=== PATIENT | female | born 1980 | race Two or more races ===

== ENCOUNTER → 2017-04-14 | Outpatient (CLI) | payer OTHER ==
[2014-06-20 23:27] VITALS: BP 128/77
--- NOTE | 2017-04-14 14:21 | RAD ---
Pelvic ultrasound, 04/14/2017: History: Check IUD placement Only transvaginal scans were obtained as requested. The uterus measures 9.2 x 5.6 x 5.4 cm. There are echogenic foci in the central aspect of the uterus compatible with the patient's known IUD. The central uterine echo complex is not clearly defined but it does not appear to be thickened. The ovaries are of normal size. There is a 2.2 cm cyst in the left ovary. Blood flow is present in both ovaries. There is a small amount of free fluid in the cul-de-sac. This amount of fluid can be on a physiologic basis. IMPRESSION: 1. Satisfactory position of the IUD within the uterus. 2. Small left ovarian cyst.
== END | disposition home or self-care (01) ==
LOC: US 11:06
PROVIDERS: ATTEND Nurse Practitioner Occupational Health
DX: Z01.419 Encounter for gynecological examination (general) (routine) without abnormal findings (principal); N83.202 Unspecified ovarian cyst, left side
CPT/HCPCS: 76830

== ENCOUNTER → 2017-10-18 | Outpatient (CLI) | payer OTHER ==
[2017-10-18 08:39] LABS: % SAT IRON 42 % (15-34); IRON,SERUM 132 ug/dL (50-170)
[2017-10-18 08:47] LABS: THYROID STIM HORMONE (TSH) 2.697 uIU/mL (0.358-3.74)
[2017-10-18 08:51] LABS: ALBUMIN 3.7 g/dL (3.4-5.0); ALBUMIN/GLOBULIN RATIO 0.9 (1.0-1.7); ALK PHOS 81 U/L (46-116); ALT (SGPT) 17 U/L (14-59); ANION GAP 9 (6-14); AST (SGOT) 13 U/L (15-37); BLOOD UREA NITROGEN 12 mg/dL (7-20); BUN/CREATININE RATIO 17 (6-20); CARBON DIOXIDE 28 mmol/L (21-32); CHLORIDE 102 mmol/L (98-107); CHOLESTEROL 194 mg/dL (0-200); CREATINE KINASE 64 U/L (26-192); CREATININE 0.7 mg/dL (0.6-1.0); FERRITIN 114 ng/mL (8-252); GFR 94.7; GLUCOSE 89 mg/dL (70-99); HDLC 66 mg/dL (40-60); LDLC 118 mg/dL (0-100); NON-HDL CHOLESTEROL 128 mg/dL (0-129); POTASSIUM 3.9 mmol/L (3.5-5.1); SODIUM 139 mmol/L (136-145); TOTAL PROTEIN 7.9 g/dL (6.4-8.2); TRIGLYCERIDES 49 mg/dL (0-150); VLDLC 10 mg/dL (0-40)
[2017-10-18 08:52] LABS: CHOLESTEROL/HDL RATIO 2.9
[2017-10-18 09:11] LABS: VITAMIN-B12 689 pg/mL (247-911)
[2017-10-18 09:47] LABS: SEDIMENTATION RATE 3 (0-25)
[2017-10-18 19:18] LABS: LUTEINIZING HORMONE 5.8 mIU/mL (.)
[2017-10-18 20:14] LABS: THYROXINE 8.7 ug/dL (4.5-12.0)
[2017-10-19 00:16] LABS: HEMOGLOBIN A1C 4.6 % (4.8-5.6)
== END | disposition home or self-care (01) ==
LOC: LAB 07:51
DX: E55.9 Vitamin D deficiency, unspecified (principal); M85.80 Other specified disorders of bone density and structure, unspecified site; R79.89 Other specified abnormal findings of blood chemistry; Z79.899 Other long term (current) drug therapy
CPT/HCPCS: 36415; 80053; 80061; 82306; 82550; 82607; 82728; 82746; 83001; 83002; 83036; 83540; 83550; 84436; 84443; 85651

== ENCOUNTER → 2017-12-15 | Outpatient (CLI) | payer OTHER ==
[2017-12-15 15:00] LABS: ADD MAN DIFF? NO
[2017-12-15 15:20] LABS: BASO % 1 % (0-3); EOS # 0.1 x10^3/uL (0.0-0.7); EOS % 2 % (0-3); HEMATOCRIT 38.4 % (36.0-47.0); HEMOGLOBIN 13.2 g/dL (12.0-15.5); LYMPH # 2.1 x10^3/uL (1.0-4.8); LYMPH % 34 % (24-48); MEAN CORPUSCULAR HEMOGLOBIN 31 pg (25-35); MEAN CORPUSCULAR HGB CONC 34 g/dL (31-37); MEAN CORPUSCULAR VOLUME 91 fL (79-100); MONO # 0.6 x10^3/uL (0.0-1.1); MONO % 10 % (0-9); NEUT # 3.2 x10^3uL (1.8-7.7); NEUT % 53 % (31-73); PLATELET COUNT 220 x10^3/uL (140-400); RED BLOOD COUNT 4.24 x10^6/uL (3.50-5.40); RED CELL DISTRIBUTION WIDTH 12.7 % (11.5-14.5); WHITE BLOOD COUNT 6.1 x10^3/uL (4.0-11.0)
== END | disposition home or self-care (01) ==
LOC: LAB 14:40
DX: D64.9 Anemia, unspecified (principal)
CPT/HCPCS: 36415; 85025

== ENCOUNTER → 2018-02-16 | Outpatient (CLI) | payer OTHER ==
[2018-02-16 12:10] LABS: ADD MAN DIFF? NO
[2018-02-16 12:17] LABS: BASO % 1 % (0-3); EOS # 0.1 x10^3/uL (0.0-0.7); EOS % 2 % (0-3); HEMATOCRIT 41.8 % (36.0-47.0); HEMOGLOBIN 14.6 g/dL (12.0-15.5); LYMPH # 1.9 x10^3/uL (1.0-4.8); LYMPH % 35 % (24-48); MEAN CORPUSCULAR HEMOGLOBIN 32 pg (25-35); MEAN CORPUSCULAR HGB CONC 35 g/dL (31-37); MEAN CORPUSCULAR VOLUME 91 fL (79-100); MONO # 0.5 x10^3/uL (0.0-1.1); MONO % 10 % (0-9); NEUT # 2.9 x10^3uL (1.8-7.7); NEUT % 54 % (31-73); PLATELET COUNT 221 x10^3/uL (140-400); RED BLOOD COUNT 4.61 x10^6/uL (3.50-5.40); RED CELL DISTRIBUTION WIDTH 12.8 % (11.5-14.5); WHITE BLOOD COUNT 5.4 x10^3/uL (4.0-11.0)
[2018-02-16 12:45] LABS: ALBUMIN 3.7 g/dL (3.4-5.0); ALK PHOS 74 U/L (46-116); ALT (SGPT) 30 U/L (14-59); ANION GAP 4 (6-14); AST (SGOT) 18 U/L (15-37); BLOOD UREA NITROGEN 13 mg/dL (7-20); BUN/CREATININE RATIO 19 (6-20); CALCIUM 8.6 mg/dL (8.5-10.1); CARBON DIOXIDE 30 mmol/L (21-32); CHLORIDE 103 mmol/L (98-107); CREATININE 0.7 mg/dL (0.6-1.0); GFR 94.7; GLUCOSE 87 mg/dL (70-99); POTASSIUM 3.6 mmol/L (3.5-5.1); SODIUM 137 mmol/L (136-145); TOTAL PROTEIN 7.4 g/dL (6.4-8.2)
[2018-02-16 12:50] LABS: THYROID STIM HORMONE (TSH) 1.784 uIU/mL (0.358-3.74)
[2018-02-16 12:51] LABS: VITAMIN-B12 517 pg/mL (247-911)
[2018-02-16 15:31] LABS: FOLATE 10.42 ng/ml (3.2-20.0)
[2018-02-17 01:11] LABS: HEMOGLOBIN A1C 4.7 % (4.8-5.6)
== END | disposition home or self-care (01) ==
LOC: LAB 11:56
DX: E78.00 Pure hypercholesterolemia, unspecified (principal); E55.9 Vitamin D deficiency, unspecified; E53.8 Deficiency of other specified B group vitamins; E16.2 Hypoglycemia, unspecified; Z79.899 Other long term (current) drug therapy
CPT/HCPCS: 36415; 80053; 82306; 82607; 82746; 83036; 84436; 84443; 85025